=== PATIENT | female | born 1985 | race Native Hawaiian/Other Pacific Islander ===

== ENCOUNTER → 2023-03-10 06:36 | Outpatient (CLI) | payer OTHER, SELFPAY ==
--- NOTE | 2023-03-10 | DI.ECHO.S_ITS ---
[facility] +---------+ : : [address] : [address] : : : : [id number] : : : : Phone: [phone]---------+ Echocardiogram Report + + :Name: MATT DELGADO Study Date: 03/10/2023 Height: 64 in : :[facility] ReadingLocation: Weight: 230 lb : : Gender: Female BSA: 2.1 m2 : :: 1985 Age: 37 yrs BP: 118/77 mmHg: :Reason For Study: Nonrheumatic Mitral Valve Insufficiency : :Ordering Physician: DELVIS, : :LENARD Performed By: Rubia Pratt : :Referring: LENARD EDMONDSON : + + Interpretation Summary 1) Mildly enlarged left ventricle with mildly reduced systolic function (EF 45-50%). 2) The right ventricle is normal in size and function. 3) There is mild to moderate mitral regurgitation. 4) No prior Echo available for comparison. Procedure: A two-dimensional transthoracic echocardiogram with color flow and Doppler was performed. The study quality was technically difficult. There is no prior echocardiogram noted for this patient. A contrast injection of Definity was performed to improve assessment of LV function. The patient was in normal sinus rhythm during the exam. Left Ventricle: The left ventricle is mildly dilated. There is mild concentric left ventricular hypertrophy. The ejection fraction is estimated to be 45-50%. There is mild global hypokinesis of the left ventricle. Diastolic parameters suggest probable normal left ventricular diastolic function and normal filling pressures. Right Ventricle: The right ventricle is normal in size and function. Atria: The left atrium is moderately dilated. Right atrial size is normal. There is no Doppler evidence for an interatrial shunt. Mitral Valve: The mitral valve is normal. There is no mitral valve stenosis. There is mild to moderate mitral regurgitation. Aortic Valve: The aortic valve is not well visualized. There is no aortic valve stenosis. No aortic regurgitation is present. Tricuspid Valve: The tricuspid valve is normal. There is no tricuspid stenosis. There is mild tricuspid regurgitation. The right ventricular systolic pressure is estimated to be at least 23 mmHg based on an estimated right atrial pressure of 3 mm Hg. Pulmonic Valve: The pulmonic valve is not well visualized. There is no pulmonic valvular stenosis. There is trace pulmonic regurgitation. Great Vessels: The aortic root is normal size. The ascending aorta is normal in size. The pulmonary artery is normal size. The IVC is of normal diameter and collapses greater than 50% with a sniff. This suggests a low right atrial pressure of 3 mm Hg. Pericardium/ Pleura There is no pericardial effusion. There is no pleural effusion. MMode/2D Measurements & Calculations LVIDd: 5.4 cm LVOT diam: 2.0 cm LVIDs: 4.4 cm Ao root diam: 3.2 cm FS: 18.5 % asc Aorta Diam: 3.2 cm EPSS: 1.4 cm IVSd: 1.1 cm LVPWd: 1.2 cm LV de la cruz. diameter/BSA (cm/m^2): 2.6 LV sys. diameter/BSA (cm/m^2): 2.1 LA A2 area: 23.5 cm2 RA long axis: 5.1 cm LA A4 area: 19.9 cm2 RA area: 14.1 cm2 LA length (vol): 5.5 cm RA vol: 33.2 ml LA vol: 72.7 ml RA : 16.0 ml/m2 LA vol index: 35.0 ml/m2 RVD1 (basal): 4.0 cm LVLs ap4: 6.5 cm LVLd ap2: 8.3 cm TAPSE_phl: 2.2 cm LVLs ap2: 6.5 cm Doppler Measurements & Calculations Ao V2 max: 110.7 cm/sec LVOT Max Eduardo: 89.9 cm/sec Ao V2 mean: 75.4 cm/sec LV V1 max P.2 mmHg Ao max P.0 mmHg LV V1 VTI: 19.2 cm Ao mean P.0 mmHg JOYCELYN(I,D): 2.4 cm2 Ao V2 VTI: 25.6 cm JOYCELYN(V,D): 2.6 cm2 sev ratio: 0.75 JOYCELYN indexed to BSA (cm^2/m^2): 1.1 MV E max eduardo: 91.3 cm/sec TR max eduardo: 221.5 cm/sec MV A max eduardo: 44.6 cm/sec TR max P.6 mmHg MV E/A: 2.0 PA V2 max: 75.6 cm/sec Med Peak E' Eduardo: 9.9 cm/sec PA V2 mean: 54.7 cm/sec E/E' med: 9.3 PA mean P.0 mmHg Lat Peak E' Eduardo: 15.1 cm/sec PA pr(Accel): 42.1 mmHg E/E' lat: 6.0 E/e' average: 7.7 MV dec time: 0.24 sec SV(LVOT): 60.3 ml AV VR_phl: 0.81 JOYCELYN(VTI)/BSA_phl: 1.1 Reading Physician:11:28 AM
== END ==
PROVIDERS: PCP Family Medicine; Referring Provider Family Medicine; Visit Provider Family Medicine
DX: I08.1 Rheumatic disorders of both mitral and tricuspid valves (principal)
CPT/HCPCS: 93306; Q9957